=== PATIENT | male | born 1945 | race Caucasian/White ===

== ENCOUNTER 2020-08-05 11:01 | Observation (INO) | payer MEDICARE ==
[~2020-08-05] VITALS: Ht 167.6 cm; Wt 77.1 kg
[~2020-08-05 11:01] MED LIST: MEDROL4 MG PO; ZESTRIL40 MG PO
[2020-08-05 12:16] LABS: HEMOGLOBIN 14.5 gm/dl (14.0-17.5); RED BLOOD COUNT 4.72 M/UL (4.20-5.50); WHITE BLOOD COUNT 8.2 K/UL (4.5-11.0)
[2020-08-05 12:40] LABS: BUN/CREATININE RATIO 14 (0-10)
[2020-08-05] MEDS ORDERED: VOLTAREN-XR100 MG PO (14:19)
[2020-08-05] MEDS ORDERED: COREG3.125 MG PO (14:19)
[2020-08-05] MEDS ORDERED: HYDROCODON-ACE1 EAC2 PO (14:19)
[2020-08-05] MEDS ORDERED: ZOCOR40 MG PO (14:20)
[2020-08-05] MEDS ORDERED: ZOCOR20 MG PO (14:21)
[2020-08-05] MEDS ORDERED: VITAMIN C1000 MG PO (14:36)
[2020-08-05] MEDS ORDERED: VITAMIN E400 UNI4 PO (14:36)
[2020-08-05] MEDS ORDERED: VITAMIN D325 MCG PO (14:37)
[2020-08-05] MEDS ORDERED: CLARITIN10 MG PO (14:37)
[2020-08-06] MEDS ORDERED: AMLODIPINE BESYL5 MG PO (09:33)
[2020-08-06] MEDS ORDERED: ASPIRIN EC81 MG PO (09:33)
== END 2020-08-06 13:43 | disposition home or self-care (01) ==
LOC: ER1 11:01 → CDU 13:32 → M/S 17:58
PROVIDERS: Emergency Medicine; ADMIT Internal Medicine
DX: I10 Essential (primary) hypertension (principal); E78.5 Hyperlipidemia, unspecified; G89.29 Other chronic pain; M54.9 Dorsalgia, unspecified; Z20.822 Contact with and (suspected) exposure to COVID-19; Z79.899 Other long term (current) drug therapy; Z87.891 Personal history of nicotine dependence
CPT/HCPCS: 70450; 70551; 71045; 80053; 82550; 82553; 83874; 84484; 85025; 93005; 93880; 99285; G0378; J0360; U0002